=== PATIENT | male | born 1980 | race Caucasian/White ===

== ENCOUNTER 2023-12-07 11:57 | Emergency (ER) | payer OTHER, SELFPAY ==
[2023-12-07] VITALS (32 sets, daily range): BP systolic 110–126; BP diastolic 70–79; PULSE 85–98; TEMP 37.6; O2SAT 92–97; BMI 25.1
--- NOTE | 2023-12-07 12:28 | XR_ITS ---
The [address] [address] Patient Name: MECREDEZ VARGHESE MRN: [id number] date: 1980 Sex: M Assigned Patient Location: ER Current Patient Location: ED.MAIN Accession/Order Number: [id number] Exam Date: 12/07/2023 12:40 Report Date: 12/07/2023 13:57 At the request of: ARNAUD CARBAJAL Procedure: XR chest 2V EXAMINATION: XR chest 2V HISTORY: chest pain COMPARISON: No relevant comparison available. TECHNIQUE: PA and lateral FINDINGS: LUNGS: Moderate focal infiltrate identified in the right upper lobe marginating the major and minor fissures. VASCULATURE: No increased pulmonary vasculature. PLEURA: No pneumothorax, effusion, or pleural thickening. CARDIAC: No cardiomegaly or cardiac silhouette abnormality. MEDIASTINUM: No visible mass or adenopathy. Left bipolar pacemaker BONES: No fracture or visible bone lesion. OTHER: Negative. XR/XR chest 2V IMPRESSION: Right upper lobe pneumonia Electronically authenticated by: CHITO KYLE Date: 12/07/2023 13:57
--- NOTE | 2023-12-07 12:29 | ED.GENADUL1 ---
HPI HPI - General Adult General Chief complaint: Chest Pain Stated complaint: GENERAL WEAKNESS, FEVER Time Seen by Provider: 12/07/23 12:28 Source: patient Mode of arrival: walk-in Limitations: no limitations History of Present Illness HPI narrative: Patient presented to the emergency department for overall not feeling well. Patient states that he was most, used crack, last Thursday was his last use, states he went to the facility. Since he has been complaining of abdominal cramping, sweats, body aches, chills. Patient states for the last 2 days he is also been having cough, generalized myalgias, worsening, chest pain that he describes as a tightness aching inside his chest constant for at least 48 hours worse when he coughs. Does not have any shortness of breath, nausea, vomiting. States that he does have a significant cardiac history. Has pacemaker. States that his facility is working on getting him cleaned up, rehab, and then going to potential psychiatric facility. States he has no current suicidal homicidal ideations, no depression, active SI, delusions or hallucinations at this time. States he just needs to get rid of what ever this viral illness is. No other complaints at this time Related Data Allergies Allergy/AdvReac Type Severity Reaction Status Date / Time acetaminophen [From Vicodin] AdvReac Severe Hives Verified 12/07/23 12:12 hydrocodone [From Vicodin] AdvReac Severe Hives Verified 12/07/23 12:12 Opioid HPI Opioid Management Most Recent Opioid Data: No Data to Display Review of Systems ROS Narrative Negative unless otherwise stated in the HPI PFSH PFS Social History Little interest or pleasure in doing things: nearly every day Feeling down, depressed, or hopeless: nearly every day Exam Narrative Exam Narrative: general: NAD, AAOx3, no distress Eyes: PERRL, EOMI, lids/conjunctiva normal. HEENT: NCAT, mmm, no lymph adenopathy, midline uvula, no exudates, normal tonsils without hypertrophy or exudates Neck: Supple, no LAD, no bruit Respiratory: respiratory effort normal, speaks in full sentences, no tripod position, no accessory muscle use. Lungs clear to auscultation without rhonchi, wheezes, rales Cardiac: Regular rate and rhythm, no edema, regular s1/s2, no m/g/r Abdomen: Soft, ND/NT. No evidence of fluid wave. No pulsatile masses on exam, rebound tenderness, Ortiz sign or pain over Mcburney's point. Skin: Warm, pink and dry. Constitutional Vital Signs, click to edit/add: Last Vital Signs Temp 99.6 F 12/07/23 12:04 Pulse 94 H 12/07/23 12:04 Resp 18 12/07/23 12:04 BP 122/75 12/07/23 12:04 Pulse Ox 95 12/07/23 12:04 O2 Del Method Room Air 12/07/23 12:04 Course Vital Signs Vital signs: Vital Signs Temperature 99.6 F 12/07/23 12:04 Pulse Rate 94 H 12/07/23 12:04 Respiratory Rate 18 12/07/23 12:04 Blood Pressure 122/75 12/07/23 12:04 Pulse Oximetry 95 12/07/23 12:04 Oxygen Delivery Method Room Air 12/07/23 12:04 Temperature 99.6 F 12/07/23 12:04 Pulse Rate 94 H 12/07/23 12:04 Respiratory Rate 18 12/07/23 12:04 Blood Pressure 122/75 12/07/23 12:04 Pulse Oximetry 95 12/07/23 12:04 Oxygen Delivery Method Room Air 12/07/23 12:04 Medical Decision Making MDM Narrative Medical decision making narrative: [facility] Patient with history as above presented with upper operatory infection. History obtained from patient. Patient was nontoxic, stable. Ambulatory. Exam as above. EKG reviewed. Labs reviewed. Independently reviewed imaging. Reviewed external records. Differential diagnosis considered. Overall presentation is consistent with pneumonia. Hyponatremia 1431 midline discussion with patient, IV fluids were given for his hyponatremia. Patient is not having any nausea, vomiting, diarrhea, abdominal pain. Does have a leukocytosis, upper lobe pneumonia was noted. Given hyponatremia, observation was offered, patient states that he does not want to stay in the left he does not absolutely have to, go home. There is a nurse practitioner at the facility he is staying in, can follow-up labs there. Written prescription printed or provided. Advanced guidance has been given. Vss, pex is benign at this time. Pt to fu with pcp 1-2 days for reeval, rter should sx worsen, persist or become worrysome in any way. All incidental laboratory studies, EKG, radiologic findings have been noted and discussed with patient. Patient was reevaluated with a benign exam at this time. Pt expressed understanding and agreement with plan of care at this time. Will fu as planned. Pt stable for discharge. Medical Records Medical records reviewed: Yes I reviewed the patient's medical records Lab Data Lab results reviewed: Yes I reviewed the patient's lab results Labs: Lab Results 12/07/23 12/07/23 Range/Units 12:25 12:34 WBC 14.0 H (4.0-11.0) 10^3/uL RBC 4.75 (4.70-6.10) 10^6/uL Hgb 14.6 (14.0-18.0) g/dL Hct 42.7 (42.0-54.0) % MCV 89.9 (80.0-94.0) fL MCH 30.7 (25.9-34.0) pg MCHC 34.2 (29.9-35.2) g/dL RDW 12.3 (11.0-15.0) % Plt Count 232 (150-450) 10^3/uL MPV 10.6 (9.5-13.5) fL Seg Neuts % (Manual) 72.0 (43.0-75.0) Band Neutrophils % 2.0 (0-5) % Lymphocytes % (Manual) 18.0 L (20.5-60.0) % Monocytes % (Manual) 7.0 (1.7-12.0) % Eosinophils % (Manual) 0.0 L (0.9-7.0) % Basophils % (Manual) 1.0 (0.2-2.0) % Neutrophils # (Manual) 10.08 H (1.4-6.5) 10^3/uL Band Neutrophils # 0.3 (0.0-0.3) 10^3/uL Lymphocytes # (Manual) 2.52 (1.20-3.80) 10^3/uL Monocytes # (Manual) 0.98 H (0.30-0.80) 10^3/uL Eosinophils # (Manual) 0.00 (0.00-0.70) 10^3/uL Basophils # (Manual) 0.14 H (0.00-0.10) 10^3/uL PT 12.0 H (9.0-11.6) sec INR 1.15 APTT 39.0 H (22.3-36.2) sec Sodium 129 L (136-145) mmol/L Potassium 4.4 (3.5-5.1) mmol/L Chloride 93 L (98-107) mmol/L Carbon Dioxide 25.8 (21.0-32.0) mmol/L Anion Gap 14.6 BUN 8.0 (7.0-18.0) mg/dL Creatinine 1.02 (0.70-1.30) mg/dL Est GFR ( Amer) >60 (>=60 mL/min/1.73m^2) Est GFR (Non-Af Amer) >60 (>=60 mL/min/1.73m^2) BUN/Creatinine Ratio 7.8 Glucose 214 H (74-106) mg/dL Calcium 9.0 (8.5-10.1) mg/dL Total Bilirubin 0.6 (0.2-1.0) mg/dL AST 28 (15-37) U/L ALT 43 (16-63) U/L Alkaline Phosphatase 95 (46-116) U/L Troponin I High Sens <4.0 L (4.0-76.1) pg/mL Total Protein 7.5 (6.4-8.2) g/dL Albumin 2.3 L (3.4-5.0) g/dL Globulin 5.2 g/dL Albumin/Globulin Ratio 0.4 Lipase 13.0 L (16.0-77.0) U/L Adenovirus (PCR) Not detected (NOT DETECTE) B. pertussis DNA (PCR) Not detected (NOT DETECTE) B.parapertussis DNA PCR Not detected (NOT DETECTE) C. pneumoniae DNA (PCR) Not detected (NOT DETECTE) Coronavirus Type OC43 Not detected (NOT DETECTE) Coronavirus Type HKU1 Not detected (NOT DETECTE) Coronavirus Type 229E Not detected (NOT DETECTE) Coronavirus Type NL63 Not detected (NOT DETECTE) Human Metapneumovir PCR Not detected (NOT DETECTE) Influenza Type A (PCR) Not detected (NOT DETECTE) Influenza Type B (PCR) Not detected (NOT DETECTE) M. pneumoniae (PCR) Not detected (NOT DETECTE) Parainfluenza PCR Not detected (NOT DETECTE) Parainfluenza 2 (PCR) Not detected (NOT DETECTE) Parainfluenza 3 (PCR) Not detected (NOT DETECTE) Parainfluenza 4 (PCR) Not detected (NOT DETECTE) RSV (RT-PCR) Not detected (NOT DETECTE) Entero/Rhino (PCR) Not detected (NOT DETECTE) SARS-CoV-2 (PCR) Not detected (NOT DETECTE) Discharge Plan Discharge Chief Complaint: Chest Pain Clinical Impression: Pneumonia, Acute hyponatremia Patient Disposition: Home, Self-Care Time of Disposition Decision: 14:32 Condition: Good Print Language: Indonesian Instructions: Hyponatremia (ED), Community Acquired Pneumonia (ED) Additional Instructions: Follow up with your PCP in the next 1 to 2 days. Return to the emergency department should symptoms worsen or become worrisome in any way. Referrals: Physician,Non-Staff, MD [Primary Care Provider] - 1 week
[2023-12-07 12:41] LABS: Adenovirus NOT DETECTED (NOT DETECTE); Bordetella parapertussis NOT DETECTED (NOT DETECTE); Coronavirus 229E NOT DETECTED (NOT DETECTE); Coronavirus HKU1 NOT DETECTED (NOT DETECTE); Coronavirus NL63 NOT DETECTED (NOT DETECTE); Coronavirus OC43 NOT DETECTED (NOT DETECTE); Human Metapneumovirus NOT DETECTED (NOT DETECTE); Human Rhinovirus/Enterovirus NOT DETECTED (NOT DETECTE); Influenza A NOT DETECTED (NOT DETECTE); Influenza B NOT DETECTED (NOT DETECTE); Mycoplasma pneumoniae NOT DETECTED (NOT DETECTE); Parainfluenza Virus 1 NOT DETECTED (NOT DETECTE); Parainfluenza Virus 2 NOT DETECTED (NOT DETECTE); Parainfluenza Virus 3 NOT DETECTED (NOT DETECTE); Parainfluenza Virus 4 NOT DETECTED (NOT DETECTE); Respiratory Syncytial Virus NOT DETECTED (NOT DETECTE); SARS-CoV-2 NOT DETECTED (NOT DETECTE)
[2023-12-07 12:43] LABS: Hematocrit 42.7 % (42.0-54.0); Hemoglobin 14.6 g/dL (14.0-18.0); Mean Corpuscular HGB Conc 34.2 g/dL (29.9-35.2); Mean Corpuscular Hemoglobin 30.7 pg (25.9-34.0); Mean Corpuscular Volume 89.9 fL (80.0-94.0); Mean Platelet Volume 10.6 fL (9.5-13.5); Platelet Count 232 10^3/uL (150-450); Red Blood Count 4.75 10^6/uL (4.70-6.10); Red Cell Distribution Width 12.3 % (11.0-15.0)
[2023-12-07 12:57] LABS: Anion Gap 14.6
[2023-12-07 12:59] LABS: Alanine Aminotransferase 43 U/L (16-63); Albumin Globulin Ratio 0.4; Albumin Level 2.3 g/dL (3.4-5.0); Alkaline Phosphatase 95 U/L (46-116); Aspartate Amino Transferase 28 U/L (15-37); BUN Creatinine Ratio 7.8; Bilirubin Total 0.6 mg/dL (0.2-1.0); Carbon Dioxide 25.8 mmol/L (21.0-32.0); Chloride 93 mmol/L (98-107); Estimated GFR (African America >60 (>=60 mL/min/1.73m^2); Estimated GFR (Non-African Ame >60 (>=60 mL/min/1.73m^2); Globulin 5.2 g/dL; Glucose 214 mg/dL (74-106); Potassium 4.4 mmol/L (3.5-5.1); Sodium 129 mmol/L (136-145); Total Protein 7.5 g/dL (6.4-8.2); Troponin I High Sensitivity <4.0 pg/mL (4.0-76.1)
[2023-12-07 13:05] LABS: Band Neutrophils Absolute 0.3 10^3/uL (0.0-0.3); Basophils Abs Manual 0.14 10^3/uL (0.00-0.10); INR 1.15; Lymphocytes Absolute Manual 2.52 10^3/uL (1.20-3.80); Monocytes Absolute Manual 0.98 10^3/uL (0.30-0.80); Segmented Neut Absolute Manual 10.08 10^3/uL (1.4-6.5)
[2023-12-07] MEDS: 0.9 % SODIUM CHLORIDE 1,000 ML 1000 ML IV (13:17)
--- NOTE | 2023-12-07 14:10 | ECG_ITS ---
The [facility] Test Date: 2023-12-07 Pat Name: MERCEDEZ VARGHESE Department: Room: - Gender: Male Expanded Function Dental Assistant: : 1980 Requested By: Order Number: [id number] Reading MD: MERRY NAILS Measurements Intervals [place] Rate: 87 P: 62 DE: 156 QRS: 263 QRSD: 126 T: 68 QT: 380 QTc: 424 Interpretive Statements 35916 Electronic ventricular pacemaker 9120 atypical ECG No previous ECG available for comparison Electronically Signed On 12-07-2023 22:30:14 EDT by MERRY NAILS
[2023-12-07] MEDS: CEFTRIAXONE 1,000 MG in 0.9 % SODIUM CHLORIDE 50 ML 100 MG IV (14:44)
[2023-12-07] MEDS: AZITHROMYCIN 500 MG in 0.9 % SODIUM CHLORIDE 250 ML 250 MG IV (15:19)
== END 2023-12-07 16:19 | disposition home or self-care (01) ==
PROVIDERS: Emergency Provider Emergency Medicine
DX: J18.9 Pneumonia, unspecified organism (principal); E87.1 Hypo-osmolality and hyponatremia; Z95.0 Presence of cardiac pacemaker; Z20.822 Contact with and (suspected) exposure to COVID-19
CPT/HCPCS: 36415; 71046; 80053; 83690; 84484; 85007; 85027; 85610; 85730; 93005; 96365; 96367; 99285; 0202U; J0456; J0696